=== PATIENT | male | born 1995 | race Caucasian/White ===

== ENCOUNTER 2019-05-17 01:13 | Emergency (ER) | payer OTHER ==
[~2019-05-17] VITALS: Ht 177.8 cm; Wt 70.3 kg
--- NOTE | 2019-05-17 03:19 | NUR ---
Patient discharged to home in stable conditon. Written and verbal after care instructions given. Patient verbalizes understanding of instructions. AMBULATORY W/ STABLE GAIT ALL BELONGINGS W/ PT
[2019-05-17 03:20] VITALS: BP 107/72
== END 2019-05-17 03:21 | disposition home or self-care (01) ==
LOC: ER 01:19
DX: M27.3 Alveolitis of jaws (principal); Z79.899 Other long term (current) drug therapy
CPT/HCPCS: A4663